=== PATIENT | male | born 1965 | race Hispanic/Latino ===

== ENCOUNTER 2017-12-15 15:24 | Outpatient (CLI) | payer OTHER ==
--- NOTE | 2017-12-15 16:02 | XRay Report ---
RIGHT SHOULDER: Pain. Routine views demonstrate normal bony and soft tissue structures with normal joint alignment of the shoulder. IMPRESSION: Normal study.
== END 2017-12-15 15:25 | disposition home or self-care (01) ==
LOC: SPVIMAG 15:24
DX: M25.511 Pain in right shoulder (principal); M25.512 Pain in left shoulder